=== PATIENT | male | born 1945 | race Caucasian/White ===

== ENCOUNTER 2017-11-24 13:16 | Emergency (ER) | payer OTHER ==
--- NOTE | 2017-11-24 13:32 | CPEKG ---
Heart Rate: 72 RR Interval: 833 P-R Interval: 184 QRSD Interval: 88 QT Interval: 380 QTC Interval: 416 P Lagrange: 75 QRS Lagrange: 61 T Wave Lagrange: 41 EKG Severity - NORMAL ECG - EKG Impression: SINUS RHYTHM Electronically Signed By: Sy Lima 24-Nov-2017 13:47:59
--- NOTE | 2017-11-24 13:33 | EDPHY ---
H & P Time Seen by Provider: 11/24/17 13:31 HPI/ROS: CHIEF COMPLAINT: Chest discomfort HISTORY OF PRESENT ILLNESS: 72-year-old man says that he stop taking his multivitamins 4 months ago because the pills were so big that he was having trouble swallowing them. Ever since Tuesday about 10 days ago he has had symptoms in the epigastric or substernal area which comes and goes and lasts about 20 min. He gets a feeling of gripping in his chest which is triggered by and worse with swallowing. It is not pleuritic. He has no dysphagia. No nausea vomiting. It is better when he moves around and worse when he is at rest. Not associated with coughing or shortness of breath. Symptoms only 1/10 now, but he comes in because since 6:00 p.m. Yesterday when he had symptoms he went to sleep and then awakened at 5:00 a.m. And was not completely gone. REVIEW OF SYSTEMS: Eye: no change in vision ENT: no sore throat Cardiac: No palpitations or syncope Pulmonary: HPI Abdomen: no vomiting, diarrhea, abdominal pain Musculoskeletal: No leg swelling Skin: no rash Neuro: no headache Constitutional: no fever : no urinary symptoms A comprehensive 10 point review of systems is otherwise negative aside from elements mentioned in the history of present illness. PAST MEDICAL HISTORY: COPD,"prediabetes" Social history: Nonsmoker, was in [facility] for 12 years and just returned 10 days ago General Appearance: Alert and conversant, cooperative. Eyes: No scleral icterus. ENT, Mouth: Normal mucous membranes. Normal pharynx. Respiratory: Normal respiratory effort, breath sounds equal, lungs are clear to auscultation. No wheezing, no stridor or drooling. Cardiovascular: Regular rate and rhythm. No murmur. Gastrointestinal: Abdomen is soft and non tender. No upper quadrant or epigastric tenderness. Neurological: Alert, face symmetric, normal motor and sensory in extremities. Skin: Warm and dry, no rashes. Musculoskeletal: No calf tenderness. Psychiatric: Not agitated. Emergency Department course/MDM: Normal EKG. Patient has symptoms that are not likely to be pulmonary embolism or ACS or SD. Negative troponin. Better with exertion and much worse with swallowing certainly suggests a noncardiac problem. More likely to be esophageal, GERD or spasm or stricture. Chest x-ray ordered. 1430: Results discussed, discharge with PPI and GI follow-up. 1445: [place] for followup. Smoking Status: Never smoked Constitutional: Initial Vital Signs Temperature (C) 36.7 C 11/24/17 13:22 Heart Rate 81 11/24/17 13:22 Respiratory Rate 16 11/24/17 13:22 Blood Pressure 110/78 11/24/17 13:22 O2 Sat (%) 97 11/24/17 13:22 O2 Delivery Mode Room Air Allergies/Adverse Reactions: No Known Allergies Allergy (Verified 11/24/17 13:21) Home Medications: Medication Instructions Recorded Pantoprazole Sodium [Protonix] 40 mg PO DAILY #15 tab 11/24/17 Medical Decision Making - Diagnostics EKG Interpretation: 12-lead EKG interpreted by me; official reading is in trace master. My interpretation is sinus rhythm rate 72 no ischemic changes and normal intervals. Imaging Results: Imaging Impressions Chest X-Ray 11/24/17 13:44 Impression: 1. Large lung volumes are consistent with COPD/emphysema. 2. No evidence for high altitude pulmonary edema or pneumothorax. Chest x-ray negative personally interpreted. Imaging: I viewed and interpreted images myself Differential Diagnosis: Differential diagnosis considered for chest pain including but not limited to myocardial ischemia, aortic dissection, pericarditis, pulmonary embolus, chest wall pain, pleural inflammation and pulmonary infectious causes. - Data Points Laboratory Results: Laboratory Results 11/24/17 13:31 11/24/17 13:31 11/24/17 11/24/17 11/24/17 13:38 13:31 13:31 WBC 7.95 10^3/uL 10^3/uL (3.80-9.50) RBC 4.80 10^6/uL 10^6/uL (4.40-6.38) Hgb 13.5 g/dL L g/dL (13.7-17.5) Hct 40.6 % % (40.0-51.0) MCV 84.6 fL fL (81.5-99.8) MCH 28.1 pg pg (27.9-34.1) MCHC 33.3 g/dL g/dL (32.4-36.7) RDW 13.5 % % (11.5-15.2) Plt Count 219 10^3/uL 10^3/uL (150-400) MPV 9.9 fL fL (8.7-11.7) Neut % (Auto) 69.2 % % (39.3-74.2) Lymph % (Auto) 22.3 % % (15.0-45.0) [place] % (Auto) 7.0 % % (4.5-13.0) Eos % (Auto) 0.9 % % (0.6-7.6) Baso % (Auto) 0.5 % % (0.3-1.7) Nucleat RBC Rel Count 0.0 % % (0.0-0.2) Absolute Neuts (auto) 5.50 10^3/uL 10^3/uL (1.70-6.50) Absolute Lymphs (auto) 1.77 10^3/uL 10^3/uL (1.00-3.00) Absolute Monos (auto) 0.56 10^3/uL 10^3/uL (0.30-0.80) Absolute Eos (auto) 0.07 10^3/uL 10^3/uL (0.03-0.40) Absolute Basos (auto) 0.04 10^3/uL 10^3/uL (0.02-0.10) Absolute Nucleated RBC 0.00 10^3/uL 10^3/uL (0-0.01) Immature Gran % 0.1 % % (0.0-1.1) Immature Gran # 0.01 10^3/uL 10^3/uL (0.00-0.10) Sodium 142 mEq/L mEq/L (135-145) Potassium 4.0 mEq/L mEq/L (3.3-5.0) Chloride 108 mEq/L mEq/L (97-110) Carbon Dioxide 22 mEq/l mEq/l (22-31) Anion Gap 12 mEq/L mEq/L (8-16) BUN 20 mg/dL mg/dL (7-23) Creatinine 1.0 mg/dL mg/dL (0.7-1.3) Estimated GFR > 60 Glucose 84 mg/dL mg/dL (70-100) Calcium 9.3 mg/dL mg/dL (8.5-10.4) POC Troponin I 0.00 ng/mL ng/mL (0.00-0.08) Point of Care Test Results: Chemistry 11/24/17 13:38 POC Troponin I 0.00 ng/mL ng/mL (0.00-0.08) Departure - Departure Disposition: Home, Routine, Self-Care Clinical Impression: Chest pain Qualifiers: Chest pain type: unspecified Qualified Code(s): R07.9 - Chest pain, unspecified Condition: Good Instructions: Chest Pain (ED), Esophageal Spasm (ED) Additional Instructions: 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 Please return for worsening symptoms, trouble breathing, unable to swallow. Soft diet until seen by Gastroenterology in the office. Referrals: KIMBERLY MILLER [Primary Care Provider] - As per Instructions Joel Diaz MD [Medical Doctor] - As per Instructions Prescriptions: Pantoprazole Sodium [Protonix] 40 mg PO DAILY #15 tab
[2017-11-24 13:52] LABS: PLATELET COUNT 219 10^3/uL (150-400)
[2017-11-24 18:57] VITALS: BP 111/68
== END 2017-11-24 15:17 | disposition home or self-care (01) ==
DX: R07.9 Chest pain, unspecified (principal); J44.9 Chronic obstructive pulmonary disease, unspecified
CPT/HCPCS: 84484-PO